=== PATIENT | male | born 1970 | race Caucasian/White ===

== ENCOUNTER → 2016-04-28 | Outpatient (CLI) | payer OTHER ==
[~2016-04-28] MED LIST: AMBIEN10 M1 PO; AMBIEN10 MG PO; BACTRIM,SEPT1 TABLET PO; CRESTOR40 MG PO; LIPITOR20 MG PO; MULTIVITAMIN1 EAC1 PO; NEXIUM40 MG PO; OMEPRAZOLE40 M1 PO; PERCOCET 5/31 TABLET PO; SIMVASTATIN80 M1 PO; TRICOR145 MG PO; [UNRECOGNIZED DRUG - REMARK]
== END | disposition home or self-care (01) ==
LOC: CDC 08:13
DX: Z00.01 Encounter for general adult medical examination with abnormal findings (principal)
CPT/HCPCS: 93000